=== PATIENT | female | born 1995 | race Two or more races ===

== ENCOUNTER 2017-02-07 21:16 | Emergency (ER) | payer OTHER ==
[2017-02-07 21:22] VITALS: BMI 28.1
[2017-02-07 21:26] VITALS: BP 118/82; PULSE 88; RESP 16; TEMP 98.5; O2SAT 97
[2017-02-07] MEDS ORDERED: Sodium Chloride 0.9% 1,000 ML IV STA (21:33)
--- NOTE | 2017-02-07 22:15 | ED PDOC ---
Arrival/HPI <Genaro Kenney - Last Filed: 02/08/17 00:41> - General Historian: Patient - History of Present Illness Time/Duration: < week (4 days) Symptom Onset: Gradual Symptom Course: Unchanged Activities at Onset: Rest, Light Context: Home <Ciaran PLUMMERIshmael - Last Filed: 02/10/17 11:32> - General Chief Complaint: Abdominal Pain Time Seen by Provider: 02/07/17 21:33 - History of Present Illness Narrative History of Present Illness (Text): 02/07/17 21:30 21 year old female, with no significant past medical history, who presents to the Emergency department complaining of mild diffuse abdominal pain for the last 4 days. Patient also reports back pain and notes she was nauseous with 1 episode of vomiting 3 days prior. Patient reports a subjective fever for 1 day, 3 days prior. Patient notes recent sick contact last week. Patient denies any dysuria, hematuria, changes in PO intake, or any other complaints (Ishmael Wagoner DO) Past Medical History - Provider Review Nursing Documentation Reviewed: Yes - Past Medical History Past Medical History: No Previous - Psychiatric Hx Substance Use: No - Past Surgical History Past Surgical History: No Previous - Suicidal Assessment Feels Threatened In Home Enviroment: No <Ishmael Wagoner DO - Last Filed: 02/10/17 11:32> Family/Social History - Physician Review Nursing Documentation Reviewed: Yes Family/Social History: No Known Family HX Smoking Status: Never Smoked Hx Alcohol Use: Yes Frequency of alcohol use: Socially Hx Substance Use: No Hx Substance Use Treatment: No <Ishmael Wagoner DO - Last Filed: 02/10/17 11:32> Allergies/Home Meds <Genaro Kenney - Last Filed: 02/08/17 00:41> <Ciaran PLUMMERIshmael - Last Filed: 02/10/17 11:32> Allergies/Adverse Reactions: Allergies No Known Allergies Allergy (Verified 02/07/17 21:22) Review of Systems - Physician Review All systems were reviewed & negative as marked: Yes - Review of Systems Constitutional: Fevers (+subjective fever) Eyes: Normal ENT: Normal Respiratory: Normal. absent: SOB Cardiovascular: Normal. absent: Chest Pain Gastrointestinal: Abdominal Pain, Nausea, Vomiting. absent: Diarrhea, Appetite Changes Genitourinary Female: Normal. absent: Dysuria, Hematuria Musculoskeletal: Back Pain Skin: Normal Neurological: Normal. absent: Headache, Dizziness Endocrine: Normal Hemo/Lymphatic: Normal Psychiatric: Normal <Ishmael Wagoner DO - Last Filed: 02/10/17 11:32> Physical Exam Vital Signs Reviewed: Yes Temperature: Afebrile Blood Pressure: Normal Pulse: Regular Respiratory Rate: Normal Appearance: Positive for: Well-Appearing, Non-Toxic, Comfortable Pain Distress: None Mental Status: Positive for: Alert and Oriented X 3 - Systems Exam Head: Present: Atraumatic, Normocephalic Pupils: Present: PERRL Extroacular Muscles: Present: EOMI Conjunctiva: Present: Normal Mouth: Present: Moist Mucous Membranes Neck: Present: Normal Range of Motion Respiratory/Chest: Present: Clear to Auscultation, Good Air Exchange. No: Respiratory Distress, Accessory Muscle Use Cardiovascular: Present: Regular Rate and Rhythm, Normal S1, S2. No: Murmurs Abdomen: Present: Normal Bowel Sounds. No: Tenderness, Distention, Peritoneal Signs Back: Present: Normal Inspection Upper Extremity: Present: Normal Inspection. No: Cyanosis, Edema Lower Extremity: Present: Normal Inspection. No: Edema Neurological: Present: GCS=15, CN II-XII Intact, Speech Normal Skin: Present: Warm, Dry, Normal Color. No: Rashes Psychiatric: Present: Alert, Oriented x 3, Normal Insight, Normal Concentration <Ishmael Wagoner DO - Last Filed: 02/10/17 11:32> Vital Signs Temp Pulse Resp BP Pulse Ox 02/07/17 21:22 98.5 F 88 16 118/82 97 Medical Decision Making - Lab Interpretations I have reviewed the lab results: Yes Interpretation: Abnormal lab values (+UTI) - RAD Interpretation Machine Joint Cutter: Radiologist <Genaro Kenney - Last Filed: 02/08/17 00:41> <Ishmael Wagoner DO - Last Filed: 02/10/17 11:32> ED Course and Treatment: 02/08/17 00:27 -Case sign off by Dr. Wagoner to follow up the labs and radiology result. -Labs are non-significant -Lipase within normal limit -UA show +UTI, pt. admits urinary frequency but no vaginal bleeding or discharge , no pelvic pain -Sonogram show fatty liver with no gall stones or renal stone. -Pain resolved, discussed all labs and sonogram results with the patient. -Discharge home with pepcid, macrobid, stay hydrated, follow up with your own pmd and GI within 2 days, return to the ER for any new or worsening signs or symptoms. (Genaro Kenney) 02/07/17 21:30 Impression: 21 year old female complaining of diffuse abdominal pain x 4 days with back pain. Plan: -- Labs, amylase, lipase -- Urinalysis, urine culture -- IV fluids -- Zofran -- Pepcid -- Reassess and disposition Progress Notes: (Ishmael Wagoner DO) - Lab Interpretations Microbiology Results: Microbiology Results 02/07/17 23:22 Urine Urine Culture - Final Escherichia Coli Lab Results: 02/07/17 23:14 02/07/17 23:14 Lab Results 02/07/17 23:22: Urine Color Yellow, Urine Appearance Sl cloudy, Urine pH 6.5, Ur Specific [place] 1.010, Urine Protein Negative, Urine Glucose (UA) Negative, Urine Ketones Negative, Urine Blood Negative, Urine Nitrate Negative, Urine Bilirubin Negative, Urine Urobilinogen 0.2, Ur Leukocyte Esterase Small H, Urine RBC 0 - 2, Urine WBC 2 - 5, Ur Epithelial Cells 0 - 2, Urine Bacteria Mod 02/07/17 23:14: Sodium 137, Potassium 4.2, Chloride 98, Carbon Dioxide 28, Anion Gap 15, BUN 11, Creatinine 0.6, Est GFR ( Amer) > 60, Est GFR (Non- Af Amer) > 60, Random Glucose 85, Calcium 9.6, Total Bilirubin 0.7, AST 18, ALT 46, Alkaline Phosphatase 77, Total Protein 8.8 H, Albumin 4.6, Globulin 4.3, Albumin/Globulin Ratio 1.1, Amylase 89, Lipase 89 02/07/17 23:14: WBC 6.2, RBC 5.06, Hgb 13.8, Hct 40.4, MCV 79.8 L, MCH 27.3, MCHC 34.2, RDW 12.9, Plt Count 278, MPV 10.2, Gran % 60.0, Lymph % (Auto) 31.0, [place] % (Auto) 8.3 H, Eos % (Auto) 0.2 L, Baso % (Auto) 0.5, Gran # 3.74, Lymph # 1.9, [place] # 0.5, Eos # 0.0, Baso # 0.03 - RAD Interpretation Radiology Orders: 02/07/17 23:30 GALL BLADDER [US] Stat FINDINGS: Liver: The liver is increased in echogenicity and size measuring 18 cm in longitudinal dimension. No intrahepatic bile duct dilation. Gallbladder: No acute findings. No gallstones. Common bile duct: No stones. No dilation, measuring 5 mm. Pancreas: Visualization of the pancreas is limited by overlying bowel gas. Right kidney: Unremarkable in echogenicity and size measuring 11.1 x 4.4 x 4.9 cm. No obstructing stones. No solid mass. No hydronephrosis. The visualized portion of the abdominal aorta is non-aneurysmal, the IVC is patent. IMPRESSION: Fatty infiltration of an enlarged liver. Limited evaluation of the pancreas, secondary to overlying bowel gas.. Thank you for allowing us to participate in the care of your patient. Dictated and Authenticated by: Lindsey Garrido MD 02/08/2017 12:14 AM Eastern Time ([place] & [place]) (Genaro Kenney) - Medication Orders Current Medication Orders: Discontinued Medications Famotidine (Pepcid) 20 mg IVP STAT STA Stop: 02/07/17 21:34 Last Admin: 02/07/17 23:18 Dose: 20 mg Sodium Chloride (Sodium Chloride 0.9%) 1,000 mls @ 1,000 mls/hr IV .Q1H STA Stop: 02/07/17 22:32 Last Admin: 02/07/17 23:18 Dose: 1,000 mls/hr Ondansetron HCl (Zofran Inj) 4 mg IVP STAT STA Stop: 02/07/17 21:34 Last Admin: 02/07/17 23:18 Dose: 4 mg - PA / SOAP TENDER / Resident Statement / has reviewed & agrees with the documentation as recorded. <Genaro Kenney - Last Filed: 02/08/17 00:41> - Scribe Statement The provider has reviewed the documentation as recorded by the Scribe <Ishmael Wagoner DO - Last Filed: 02/10/17 11:32> - Scribe Statement Nicky Bob All medical record entries made by the Scribe were at my direction and personally dictated by me. I have reviewed the chart and agree that the record accurately reflects my personal performance of the history, physical exam, medical decision making, and the department course for this patient. I have also personally directed, reviewed, and agree with the discharge instructions and disposition. (Ishmael Wagoner DO) Disposition/Present on Arrival - Present on Arrival Any Indicators Present on Arrival: No History of DVT/PE: No History of Uncontrolled Diabetes: No Urinary Catheter: No History of Decub. Ulcer: No - Disposition Have Diagnosis and Disposition been Completed?: Yes Disposition Time: 00:32 Patient Plan: Discharge <Genaro Kenney - Last Filed: 02/08/17 00:41> - Present on Arrival History of DVT/PE: No History of Uncontrolled Diabetes: No Urinary Catheter: No History of Decub. Ulcer: No History Surgical Site Infection Following: None <Ishmael Wagoner DO - Last Filed: 02/10/17 11:32> - Disposition Diagnosis: UTI (urinary tract infection), Gastritis Disposition: HOME/ ROUTINE Condition: IMPROVED Additional Instructions: Discharge home with pepcid, macrobid, stay hydrated, follow up with your own pmd and GI within 2 days, return to the ER for any new or worsening signs or symptoms. Prescriptions: Famotidine [Pepcid] 20 mg PO DAILY #14 tab Nitrofurantoin Macrocrystals [Macrobid] 100 mg PO BID #14 cap Phenazopyridine [Pyridium] 200 mg PO TID #6 tab Referrals: [facility] Aminah Chavarria, [Non-Staff] - Follow up with primary Robson Garza MD [Medical Doctor] - Follow up with primary Forms: WORK NOTE
[2017-02-07 23:20] LABS: ADD MANUAL DIFF? NO
[2017-02-07 23:31] LABS: BASO # 0.03 K/mm3 (0.0-2.0); BASO % 0.5 % (0.0-3.0); EOS % 0.2 % (1.5-5.0); GRAN # 3.74 (1.4-6.5); HEMATOCRIT 40.4 % (36.0-48.0); LYMPH # 1.9 (1.2-3.4); MEAN CELL VOLUME 79.8 fL (80.0-105.0); MEAN CORPUSCULAR HEMOGLOBIN 27.3 pg (25.0-35.0); MEAN CORPUSCULAR HGB CONC 34.2 g/dl (31.0-37.0); MEAN PLATELET VOLUME 10.2 fl (7.0-11.0); MONO # 0.5 (0.1-0.6); MONO % 8.3 % (1.0-6.0); PLATELET COUNT 278 10^3/uL (120.0-450.0); RED CELL DISTRIBUTION WIDTH 12.9 % (11.5-14.5); WHITE BLOOD COUNT 6.2 10^3/ul (4.5-11.0)
[2017-02-07 23:33] LABS: ALB/GLOB RATIO 1.1 (1.1-1.8); ALKALINE PHOSPHATASE 77 U/L (38-133); ALT/SGPT 46 U/L (7-56); AMYLASE 89 U/L (35-125); AST/SGOT 18 U/L (15-39); BILIRUBIN,TOTAL 0.7 mg/dL (0.2-1.3); BLOOD UREA NITROGEN 11 mg/dL (7-21); CALCIUM 9.6 mg/dL (8.4-10.5); CARBON DIOXIDE 28 mmol/L (21-33); GFR AFRICAN-AMERICAN > 60; GLUCOSE,RANDOM 85 mg/dL (70-110); LIPASE 89 U/L (23-300); POTASSIUM 4.2 mmol/L (3.6-5.0); SODIUM 137 mmol/L (132-148); TOTAL PROTEIN 8.8 g/dL (5.8-8.3)
[2017-02-07 23:36] LABS: CHLORIDE 98 mmol/L (98-107)
[2017-02-07 23:47] LABS: PH,URINE 6.5 (4.7-8.0); URINE BILIRUBIN NEGATIVE (NEGATIVE); URINE BLOOD NEGATIVE (NEGATIVE); URINE GLUCOSE (UA) NEGATIVE (NEGATIVE); URINE KETONE NEGATIVE (NEGATIVE); URINE LEUKOCYTE ESTERASE SMALL Leu/uL (NEGATIVE); URINE PROTEIN NEGATIVE mg/dL (<30 mg/dL); URINE UROBILINOGEN 0.2 E.U./dL (<1 E.U./dL)
[2017-02-07 23:59] LABS: URINE APPEARANCE SL CLOUDY (CLEAR); URINE COLOR YELLOW (YELLOW)
[2017-02-08] LABS: URINE RBC 0 - 2 /hpf (0-2)
[2017-02-08 00:01] LABS: URINE BACTERIA MOD (NEG); URINE EPITHELIAL CELLS 0 - 2 /hpf (0-5)
--- NOTE | 2017-02-08 00:14 | US ---
EXAM: US Abdomen Limited, Right Upper Quadrant CLINICAL HISTORY: 21 years old, female; Pain; Abdominal pain; Generalized; Additional info: Rt. Upper quadrant pain TECHNIQUE: Real-time ultrasound of the right upper quadrant with image documentation. COMPARISON: No relevant prior studies available. FINDINGS: Liver: The liver is increased in echogenicity and size measuring 18 cm in longitudinal dimension. No intrahepatic bile duct dilation. Gallbladder: No acute findings. No gallstones. Common bile duct: No stones. No dilation, measuring 5 mm. Pancreas: Visualization of the pancreas is limited by overlying bowel gas. Right kidney: Unremarkable in echogenicity and size measuring 11.1 x 4.4 x 4.9 cm. No obstructing stones. No solid mass. No hydronephrosis. The visualized portion of the abdominal aorta is non-aneurysmal, the IVC is patent. IMPRESSION: Fatty infiltration of an enlarged liver. Limited evaluation of the pancreas, secondary to overlying bowel gas.
== END 2017-02-08 01:14 | disposition home or self-care (01) ==
LOC: ED 21:16
DX: N39.0 Urinary tract infection, site not specified (principal); K29.70 Gastritis, unspecified, without bleeding
CPT/HCPCS: 76705; 80053; 81001; 82150; 83690; 85025; 87086; 87181; 96374; 96375; 99283; J2405; J7040